=== PATIENT | male | born 1965 | race Caucasian/White ===

== ENCOUNTER 2023-07-17 10:51 | Emergency (ER) | payer BC, SELFPAY ==
[2023-07-17 10:55] VITALS: BP 109/74
[2023-07-17 11:00] VITALS: BP 105/76
[2023-07-17] MEDS: NSS 1000 IV (11:02)
[2023-07-17 11:03] VITALS: BMI 32.5
[2023-07-17 11:17] LABS: % Basophils 0.7 % (0-2); % Eosinophils 0.8 % (0-6); % Immature Granulocytes 0.3 % (0-0.5); % Lymphocytes 17.8 % (20.5-51.1); % Monocytes 6.8 % (1.7-9.3); % Neutrophils 73.6 % (42.2-75.2); Absolute Basophils 0.1 10^3/uL (0-0.2); Absolute Eosinophils 0.1 10^3/uL (0-0.7); Absolute Lymphocytes 1.3 10^3/uL (1.2-3.4); Absolute Monocytes 0.5 10^3/uL (0.1-0.6); Absolute Neutrophils 5.5 10^3/uL (1.4-6.5); Hematocrit 38.4 % (39.0-52.0); Hemoglobin 13.4 g/dL (13.0-18.0); Mean Corp Hgb Conc. 34.9 g/dL (33.0-37.0); Mean Corpuscular Volume 88.9 fL (80.0-94.0); Mean Platelet Volume 10.5 fL (7.4-10.4); Nucleated Red Blood Cells % 0 % (-); Platelet Count 227 10^3/uL (130-400); Red Blood Cell Count 4.32 10^6/uL (4.70-6.10); Red Cell Dist. Width 12.2 % (11.5-14.5); White Blood Cell Count 7.5 10^3/uL (4.8-10.8)
[2023-07-17 11:25] LABS: Blood Urea Nitrogen 18 mg/dl (9-20); Calcium 9.1 mg/dl (8.4-10.2); Carbon Dioxide 26 mmol/L (22-30); Chloride 105 mmol/L (98-107); Estimated Creatinine Clearance 115 ml/min; Glucose 120 mg/dl (70-99); Potassium 4.6 mmol/L (3.5-5.1); Sodium 136 mmol/L (135-145); eGFR > 60.00
[2023-07-17 12:00] VITALS: BP 109/67
--- NOTE | 2023-07-17 12:40 | ED.GENMED ---
History of Present Illness
General
Chief Complaint: Fainting/Passed Out
Time Seen by Provider: 07/17/23 10:58
Nursing documentation reviewed up to this point in time: agreed with
Travel History
Have you had any contact with someone who has COVID-19?: No
Do you have any symptoms of coronavirus? Fever > 100 degrees, chills, cough, shortness of breath, sore throat, loss of taste or smell, muscle aches, or headache?: No
History of Present Illness
History of Present Illness:
HPI: The patient had mild onset of hemorrhoidal discomfort about 4 days ago. More recently he has had some degree of increased discomfort along with new bleeding described as bright red blood per rectum. He went to urgent care. During their
evaluation he felt somewhat dizzy and passed out. Urgent care indicated the patient slumped down but did not strike his head. There is no injury. tells me that he is prone to passing out and has passed out several times in the past. The
patient states that he is chronically bradycardic.
EXAM:
GENERAL: Well appearing in no distress
HEENT: Moist oral mucosa
CARDIOVASCULAR: No murmurs, normal heart rate and rhythm, No chest wall tenderness
PULMONARY: No respiratory distress, breath sounds are clear and equal
ABDOMEN: Soft with no peritoneal signs, no tenderness, there is a relatively large external hemorrhoid with no active bleeding that is only mildly tender, brown stool is noted next to the external hemorrhoid
NEUROLOGIC: Excellent strength all extremities, no coordination deficits
PSYCHIATRIC: Appropriate mental status, normal insight and judgement
EXTREMITIES: Nontender, no edema, moves all extremities equally
SKIN: No rash, no lesions
ED COURSE:
11 AM: I initially evaluated patient
NUMBER AND COMPLEXITY OF PROBLEMS ADDRESSED AT THE ENCOUNTER
� Chronic conditions affecting care: No significant past medical history but does report a history of skin cancer
� Acute Exacerbation and/or Progression of Chronic Illness: This is an acute problem
� Differential Diagnosis includes: Thrombosed external hemorrhoid, bleeding from external hemorrhoid, anemia
AMOUNT AND/OR COMPLEXITY OF DATA TO BE REVIEWED AND ANALYZED
� I performed an independent evaluation of and my interpretation is:
EKG: Sinus 50, nonspecific ST abnormality
CT:
X-rays:
Laboratory Studies: Hemoglobin is 13.4, normal white count, normal chemistries,
Other:
� Review of other/old records: Patient had colonoscopy when he and did have polyps removed at that time
� Clinical information was obtained by an independent historian: I spoke to at bedside
� Prescriptions/Medications Considered but not given:
� Further testing considered but not performed:
RISK OF COMPLICATIONS AND/OR MORBIDITY OR MORTALITY OF PATIENT MANAGEMENT
� Social determinants of health affecting care: Lives at home
� Discussion with other providers: I spoke to the on-call colorectal surgeon, Dr. Tony Kidd, he is unable to evaluate immediately in the ED. We agreed to hold off on excision of the lesion at this time. However he does
recommend Proctosol and RectiCare.
� Escalation of care including admission/observation vs risk of discharge considered: The patient has remained slightly bradycardic however the the patient states this is common for him. He may have underlying increased vagal
tone which could have been a contributing factor for syncopal event today. Regardless, currently he is very well-appearing with normal vital signs and normal hemoglobin. I did communicate with Dr. Kidd.
Phy Exam
Physical Exam
Physical Exam:
See HPI
Course
Orders/Labs/Results
Orders:
Orders
07/17/23 10:58
0.9% Sodium Chloride 1000 ml [Nss] 1,000 ml IV BOLUS
07/17/23 10:59
Electrocardiogram (*1) Urgent
Reason for Study: Syncope
EKG- Treatment ONCE
07/17/23 11:01
Type+Screen Urgent
Basic Metabolic Panel Urgent
Complete Blood Count/With Diff Urgent
Abnormal Lab Results
07/17/23
11:01
RBC 4.32 L 10^6/uL
(4.70-6.10)
Hct 38.4 L %
(39.0-52.0)
MPV 10.5 H fL
(7.4-10.4)
Lymphocytes % 17.8 L %
(20.5-51.1)
Glucose 120 H mg/dl
(70-99)
07/17/23 11:01
07/17/23 11:01
Vital Signs
Initial and Last Documented VS:
Initial Vital Signs
Pulse Resp Pulse Ox
53 9 95
07/17/23 10:54 07/17/23 10:54 07/17/23 10:54
Last Documented Vital Signs
Temp Pulse Resp BP Pulse Ox
97.6 F 51 13 105/76 98
07/17/23 10:55 07/17/23 11:45 07/17/23 11:45 07/17/23 11:00 07/17/23 11:45
*Critical Care Note
Total Time (30-74mins, 75-104mins- exclusive of procedures): Not Applicable
ED Attending Note
-
Portions of this chart may have been created with voice recognition software.� Occasional wrong word or��sound alike� substitutions may have occurred due to the inherent limitations of voice recognition software.
Discharge Plan
Departure
Patient Disposition: Home (Routine Discharge)
Date of Disposition: 07/17/23
Time of Disposition: 12:49
Patient with high blood pressure during this ER visit?: No
Discharge Problem:
External bleeding hemorrhoids
Prescriptions:
New
hydrocortisone [Proctosol HC] 2.5 % cream with perineal applicator
1 applic KY BID Qty: 30 0RF
lidocaine [RectiCare] 5 % cream
1 applic topical TID PRN (Reason: Pain) Qty: 30 0RF
Referrals:
Jayda Alcaraz, DO [Family Provider] -
Tony Kidd MD [Active] - Follow up in 2-3 days
Activity Restrictions/Additional Instructions:
I discussed with Dr. Tony Kidd today. Please follow-up with him in their office. He said that he will notify their office staff to try to get you in sooner than later. I also sent a prescription for both Proctosol (a steroid) cream and
RectiCare (lidocaine for quick-acting relief) as recommended by Dr. Kidd. Return here if worse. Your blood counts are normal. Your white blood cell count is normal. Your EKG is unremarkable.
Interventions
Interventions:
*Risk Screen - Suicide Last Done: 07/17/23 10:55
*General Assessment Last Done: 07/17/23 10:55
*Neglect/Abuse Screening Last Done: 07/17/23 10:55
ED- Fall Risk Assessment Last Done: 07/17/23 11:17
ED- Cardiac Assessment Last Done: 07/17/23 11:17
ED- Neurological Assessment Last Done: 07/17/23 11:17
[2023-07-17 13:00] VITALS: BP 112/68
== END 2023-07-17 13:20 | disposition home or self-care (01) ==
LOC: EMR 10:51
PROVIDERS: EMERGENCY PHYSICIAN Emergency Medicine; FAMILY PHYSICIAN Family Medicine
DX: K64.4 Residual hemorrhoidal skin tags (principal); R55 Syncope and collapse; R00.1 Bradycardia, unspecified; R42 Dizziness and giddiness
CPT/HCPCS: 99284; 96360; 80048; 85025; 86850; 86900; 86901; 93005